=== PATIENT | female | born 1990 ===

== ENCOUNTER 2024-04-05 09:44 | Outpatient (CLI) | payer OTHER | END 2024-04-05 10:37 | disposition home or self-care (01) | LOC: NST 09:44 | PROVIDERS: ATTEND Obstetrics & Gynecology Gynecology | DX: Z34.83 Encounter for supervision of other normal pregnancy, third trimester (principal) ==

== ENCOUNTER 2024-04-08 05:09 | Outpatient (CLI) | payer OTHER ==
[2024-04-08 04:40] VITALS: BP 109/82
[2024-04-08 07:25] VITALS: BP 109/71
[2024-04-08 09:21] VITALS: BP 109/71
[2024-04-09] MEDS ORDERED: PRENATAL TABLE1 EAC4 PO (01:43)
== END 2024-04-08 09:34 | disposition home or self-care (01) ==
LOC: OBS/DEL 05:09
PROVIDERS: ATTEND Obstetrics & Gynecology Gynecology
DX: O47.1 False labor at or after 37 completed weeks of gestation (principal); Z3A.38 38 weeks gestation of pregnancy

== ENCOUNTER 2024-04-09 01:12 | Inpatient (IN) | payer OTHER ==
[~2024-04-09] VITALS: Ht 160 cm; Wt 64.4 kg
[2024-04-09] VITALS (7 sets, daily range): BP systolic 106–145; BP diastolic 62–82
[2024-04-09] MEDS ORDERED: RINGERS SOLUTION,LACTATED 1,000 ML IV SCH (01:15)
[2024-04-09] MEDS ORDERED: PRENATAL TABLE1 EAC4 PO (01:43)
[2024-04-09 02:01] LABS: HEMATOCRIT 36.2 % (36.0-45.00); HEMOGLOBIN 12.7 g/dL (12.0-15.00); MEAN CORPUSCULAR HEMOGLOBIN 30.1 pg (27.00-32.0); PLATELET COUNT 352 K/uL (150-450); RED BLOOD COUNT 4.21 M/uL (4.00-6.00); RED CELL DISTRIBUTION WIDTH 19.3 % (11.5-14.5)
[2024-04-09 02:12] LABS: INR 0.94; PARTIAL THROMBOPLASTIN TIME 28.5 SECONDS (22.0-34.0); PROTHROMBIN TIME 10.3 SECONDS (9.0-11.5)
[2024-04-09 02:17] LABS: ALBUMIN 2.6 gm/dL (3.4-5.0); BILIRUBIN TOTAL 1.67 mg/dL (0.3-1.2); GFR 141.23; GLOBULINA 3.9 G/DL (2.4-3.5); POTASSIUM 4.16 mEq/L (3.5-5.1); TOTAL PROTEIN 6.5 gm/dL (6.4-8.2)
[2024-04-09] MEDS ORDERED: CHLORHEXIDINE GLUCONATE 120 ML BOTTLE TOP SCH (02:30)
[2024-04-09] MEDS ORDERED: IBUprofen 400 MG TABLET PO PRN (02:30)
[2024-04-09] MEDS ORDERED: OXYTOCIN 1,000 ML IV SCH (02:30)
[2024-04-09 02:38] LABS: CREATININE SERUM 0.5 mg/dL (0.55-1.02)
[2024-04-09] MEDS ORDERED: ERYTHROMYCIN BASE OPHT 1GM EACH TUBE OP ONE (03:15)
[2024-04-09] MEDS ORDERED: NSS SCH (12:00)
[2024-04-09] MEDS ORDERED: SODIUM CHLORIDE FOR INHALATION 1 VIAL.NEB IH SCH (12:27)
[2024-04-10 01:28] VITALS: BP 100/62
[2024-04-10 06:02] VITALS: BP 106/70
[2024-04-10 06:53] LABS: HEMATOCRIT 32.9 % (36.0-45.00); HEMOGLOBIN 11.2 g/dL (12.0-15.00); MEAN CELL VOLUME 86.8 fL (80.00-100.00); MEAN CORPUSCULAR HEMOGLOBIN 29.6 pg (27.00-32.0); MEAN CORPUSCULAR HGB CONC 34.1 g/dl (32.0-36.0); PLATELET COUNT 341 K/uL (150-450); RED BLOOD COUNT 3.79 M/uL (4.00-6.00); RED CELL DISTRIBUTION WIDTH 20.7 % (11.5-14.5)
[2024-04-10 08:00] VITALS: BP 102/68
[2024-04-10 16:24] VITALS: BP 104/76
[2024-04-11 03:04] VITALS: BP 120/80
[2024-04-11 09:18] VITALS: BP 121/86
== END 2024-04-11 14:32 | disposition home or self-care (01) | DRG 807 ==
LOC: LDR 01:12 → OB/GYN 01:12
PROVIDERS: Obstetrics & Gynecology; ADMIT Obstetrics & Gynecology Maternal & Fetal Medicine; ATTEND Obstetrics & Gynecology Maternal & Fetal Medicine
PROC: 10E0XZZ Delivery of Products of Conception, External Approach (ICD-10-PCS; principal; 2024-04-09)
PROC: 4A1HXCZ Monitoring of Products of Conception, Cardiac Rate, External Approach (ICD-10-PCS; 2024-04-09)
DX: O80 Encounter for full-term uncomplicated delivery (principal); Z37.0 Single live birth; Z3A.38 38 weeks gestation of pregnancy; Z20.822 Contact with and (suspected) exposure to COVID-19